=== PATIENT | female | born 1940 | race Caucasian/White ===

== ENCOUNTER → 2016-10-05 | Day surgery (SDC) | payer OTHER ==
[~2016-10-05] VITALS: Ht 160 cm; Wt 51.7 kg
[~2016-10-05] MED LIST: AMBIEN10 M1 PO; AMBIEN5 M1 PO; COLACE100 M1 PO; DILAUDID2 M1 PO; ELIQUIS2.5 M1 PO; ELMIRON100 M1 PO; EVISTA60 MG PO; HYDROXYZINE HCL25 M2 PO; LOMOTIL 2.5-0.1 EACH PO; MIRALAX17 G1 PO; OMEPRAZOLE40 M1 PO; PROAIR HFA8.5 GM INH
--- NOTE | 2016-10-05 10:50 | Operative Report ---
Operative/Inv Procedure Report Surgery Date: 10/05/16 Name of Procedure: Right knee arthroscopic lateral release Right knee arthroscopic partial lateral meniscectomy Pre-Operative Diagnosis: Right knee patellar chondromalacia Post-Operative Diagnosis: Right knee patellar chondromalacia Right knee lateral meniscal tear Right knee osteoarthritis lateral compartment Estimated Blood Loss: scant Surgeon/Mercerizing Range Controller: RAVEN BARBOZA MD Anesthesia: laryngeal mask airway IV Fluids: See anesthesia record Drains: None Specimens: None Complications: None Condition: Stable Operative Indication: Patient is a 76-year-old female with complaints of chronic anterior knee pain and patellofemoral symptoms. She is failed conservative treatment with physical therapy and injections and wished to undergo arthroscopic procedure for a lateral release. Risk and benefits of the procedure were discussed in detail with the patient and she wished to proceed with the procedure. Operative/Procedure Note Note: Once informed consent was obtained and the correct limb was identified the patient brought to operative room placed on table in supine position. After administration of anesthesia the patient's right leg was placed in the knee aguirre and the foot of table was dropped and the right leg was prepped and draped in usual sterile fashion. To begin the procedure a lateral scopic portals made and the scope was introduced into the joint. Diagnostic arthroscopy was carried out. Patella femoral joint was inspected. There was significant wear of the lateral facet of patella and there was a full-thickness defect of the femoral trochlea. There were no plica or bands. There are no loose bodies in the mediolateral gutters. The medial compartment knee was entered by placing a valgus stress of the knee. The medial meniscus was intact. There are minimal to no degenerative changes of the medial femoral condyle medial tibial plateau. The scope was taken across intercondylar notch. ACL was intact. By placing leg in a figure 4 position the lateral compartment knee was entered. The lateral compartment of the knee showed full-thickness defects of the lateral tibial plateau and lateral femoral condyle. There was complete cartilage loss. There was also a tear of the body of the lateral horn of the lateral meniscus. Arthroscope was brought back in the medial compartment knee and a medial portal was made under direct visualization. A 4.2 great white shaving device was placed into the knee and the camera and shaving device were brought into lateral compartment of the knee. Partial lateral meniscectomy was performed and the meniscus was trimmed back to stable rim of cartilage. A chondroplasty was done on the cartilaginous defect regions. Once we were completed that we brought the shaving device back into the total femoral joint and mild debridement with of the synovium was done. Next an electrocautery device was done and a lateral release of the patellar retinaculum was performed without complication. Shaving device was then used to smooth off any rough edges of cartilage on the trochlea and patella. The knee was irrigated with ARTHROscopic saline and instruments removed. Portals were closed with 3-0 nylon interrupted sutures and a sterile dressing was applied and the patient was awakened taken recovery room in stable condition.
== END ==
LOC: STS 03:32
DX: M23.200 Derangement of unspecified lateral meniscus due to old tear or injury, right knee (principal); M22.41 Chondromalacia patellae, right knee; E53.8 Deficiency of other specified B group vitamins; D64.9 Anemia, unspecified; K21.0 Gastro-esophageal reflux disease with esophagitis
CPT/HCPCS: J0131; J1200; J2250; J2405

== ENCOUNTER 2016-11-28 03:21 | Inpatient (IN) | payer OTHER ==
[~2016-11-28] VITALS: Ht 157.5 cm; Wt 50.8 kg
[~2016-11-28 03:21] MED LIST changes: -COLACE100 M1 PO; -DILAUDID2 M1 PO; -ELIQUIS2.5 M1 PO; -MIRALAX17 G1 PO
[2016-11-28] MEDS ORDERED: MIRALAX17 G1 PO (09:56)
[2016-11-28] MEDS ORDERED: COLACE100 M1 PO (09:56)
[2016-11-28] MEDS ORDERED: ELIQUIS2.5 M1 PO (09:56)
[2016-11-28] MEDS ORDERED: DILAUDID2 M1 PO (09:56)
--- NOTE | 2016-11-28 09:59 | Patient Discharge Instructions ---
Discharge Instructions General Discharge Information You were seen/treated for: Right knee pain You had these procedures: Right total knee replacement Watch for these problems: Increasing pain, redness, warmth, swelling. Drainage of any type from incision. Inability to bear weight on right leg. Fever greater than 101.5. Do not soak the wound: Yes No bath, but you may shower: Yes Special Instructions: Incision: Dry dressing. May shower. No baths. No ointments of any kind. Ice as needed. Bowel regimen: Colace and or MiraLAX Weight-bearing as tolerated Follow-up with Dr. Escalante in 6 weeks. Call office for fevers greater than 101.5, excessive drainage or inability to bear weight on operative extremity. Visiting nurse will change dressing. Diet Continue normal diet: Yes Recommended Diet: Regular Additional DIET Information: Advance as tolerated Activity Full Activity/No Limits: No Activity Self Limited: Yes Pounds, do NOT lift more than: 10 Additional ACTIVITY Info: Weight-bear as tolerated on right leg Acute Coronary Syndrome Inclusion Criteria At DC or during hospital stay patient has or had the following: ACS DIAGNOSIS No Discharge Core Measures Meds if any: Prescribed or Continued at Discharge Meds if any: NOT Prescribed or Continued at Discharge Congestive Heart Failure Inclusion Criteria At DC or during hospital stay patient has or had the following: CHF DIAGNOSIS No Discharge Core Measures Meds if any: Prescribed or Continued at Discharge Meds if any: NOT Prescribed or Continued at Discharge Cerebrovascular accident Inclusion Criteria At DC or during hospital stay patient has or had the following: CVA/TIA Diagnosis No Discharge Core Measures Meds if any: Prescribed or Continued at Discharge Meds if any: NOT Prescribed or Continued at Discharge Venous thromboembolism Inclusion Criteria VTE Diagnosis No VTE Type NONE VTE Confirmed by (Test) NONE Discharge Core Measures - Per Current guidelines, there needs to be overlap - treatment for the first 5 days of Warfarin therapy. - If discharged on Warfarin prior to 5 days of - overlap therapy, the patient will need to be - assessed for post discharge needs including - *Post discharge parental anticoagulation - *Warfarin and/or parental anticoagulation education - *Follow up date to check INR post discharge At least 5 days overlap therapy as Inpatient No Meds if any: Prescribed or Continued at Discharge Note: Overlap Therapy is Warfarin and Anticoagulant Meds if any: NOT Prescribed or Continued at Discharge
--- NOTE | 2016-11-28 10:01 | Admission Core Measures ---
Admission Meds I reviewed the following Meds: Current Medications Sig/Clarita Start time Last Medication Dose Stop Time Status Admin Acetaminophen 975 MG ONCE 11/28 0000 NR (Tylenol) 11/28 2358 Albuterol Sulfate See Dose Q6P PRN 11/28 0930 AC (Ventolin) Insts (1) Omeprazole 40 MG DAILY AC 11/29 0700 AC (Prilosec) Oxycodone HCl 10 MG ONCE 11/28 0000 NR (Roxicodone) 11/28 2358 Pentosan Polysulfate 100 MG TID 11/28 1000 AC Sodium (ELMIRON) Raloxifene HCl 60 MG DAILY 11/28 1000 AC (Evista 60MG) Vancomycin HCl 1,000 MG ONCE 11/28 0000 NR Dextrose/Water 250 ML 11/28 2358 (D5W) Zolpidem Tartrate 10 MG AT BEDTIME 11/28 2200 AC (Ambien) Dose Instructions: (1)Albuterol Sulfate (Ventolin): 1-2 PUF Acute Coronary Syndrome Inclusion Criteria ACS Diagnosis No Inpatient Core Measures LDL Reminder: If No, please order W/I first 24hr of stay Congestive Heart Failure Inclusion Criteria CHF Diagnosis No Cerebrovascular accident Inclusion Criteria CVA/TIA Diagnosis No Inpatient Core Measures Bedside Swallow Eval Reminder: If BSE failed, place ST order Antithrombotic Reminder: Order Antithrombotic Medication by end of day 2 Antithrombotic Reminder: Document Reason Antithrombotic Not ordered by end of day 2 AFIB/Flutter Reminder: If Present, add to problem list AFIB/Flutter Reminder: Order Anticoag Medication for pts with AFIB/Flutter Atherosclerosis Reminder: If Present, add to problem list LDL Reminder: If No, please order W/I first 24hr of stay PT Order Reminder: If No, please order Venous thromboembolism Inpatient Core Measures VTE Risk Factors: Age > 40, Surgery VTE Prophylaxis [facility] prophylaxis d/t No contraindications No VTE Pharm Prophylaxis d/t No contraindications Inclusion Criteria - Per Current guidelines, there needs to be overlap - treatment for the first 5 days of Warfarin therapy. - Parenteral Anticoagulation (IV or SC) needs to be - given along with Warfarin therapy. VTE Diagnosis No VTE Type NONE VTE Confirmed by (Test) NONE Problem List As ranked by this Provider includes Assessment & Plan 1. Unilateral primary osteoarthritis, right knee HOME MEDS Home Med List Albuterol Sulfate (Proair Hfa) 90 MCG HFA.AER.AD 1-2 PUF INH AD PRN RESPIRATORY (Reported) Apixaban (Eliquis) 2.5 MG TABLET 1 TAB PO BID ANTICOAGULATION Diphenoxylate HCl/Atropine (Lomotil 2.5-0.025 MG Tablet) 2.5 MG-0.025 MG TABLET Unknown PO DAILY DIARRHEA (Reported) Docusate Sodium (Colace) 100 MG CAPSULE 1 CAP PO BID CONSTIPATION Hydromorphone HCl (Dilaudid) 2 MG TABLET 1-2 TAB PO Q4-6P PRN PAIN Hydroxyzine HCl (Unknown Strength) TABLET 2 TAB PO QPM UNKNOWN (Reported) Omeprazole 40 MG CAPSULE.DR 1 CAP PO DAILY GERD (Reported) Pentosan Polysulfate Sodium (Elmiron) 100 MG CAPSULE 1 CAP PO TID CYSTITIS ( Reported) Polyethylene Glycol 3350 (Miralax) 17 GRAM POWD.PACK 1 PAC PO DAILY CONSTIPATION Raloxifene Hydrochloride (Evista) 60 MG TABLET 1 TAB PO DAILY UNKNOWN ( Reported) Zolpidem Tartrate (Ambien) 10 MG TABLET 1 TAB PO NIGHTLY SLEEP (Reported)
--- NOTE | 2016-11-28 10:04 | Surgical Discharge Summary ---
Visit Information Visit Dates Admission Date: 11/28/16 Discharge Date: 12/01/2016 History of Present Illness Chief Complaint: Right knee pain Surgical History Pertinent Surgical History: non-contributory Review of Systems: See H&P Hospital Course Course Attending Physician: DISHA BERUMEN MD Primary Care Physician: DAWN JIMENEZ,[facility] Course: Patient was admitted to the hospital on 11/28/2016 for an elective right total knee replacement. She tolerated the procedure well. She was transferred to a general surgical floor. Her diet was advanced and tolerated. Her vital signs were stable and within normal limits. She voided spontaneously. Her pain was well controlled. She was evaluated and treated by physical therapy. She was deemed appropriate for discharge to home with home health services. Allergies: Coded Allergies: Gadolinium-Containing Contrast Medi (UNKNOWN REACTION TO IV DYES 09/29/16) Iodinated Contrast Media - Oral and (UNKNOWN REACTION TO IV DYES 09/29/16) NSAIDS (Non-Steroidal Anti-Inflamma (UNKNOWN 11/25/16) PER PRE-OP ORDER SHEET. -CG 11/25/16 1037 Penicillins (UNKNOWN 09/29/16) Sulfa (Sulfonamide Antibiotics) (UNKNOWN 09/29/16) aspirin (GI UPSET 10/05/16) cat dander (ANGIODEMA, HIVES 09/29/16) codeine (UNKNOWN 09/29/16) egg (UNKNOWN 09/29/16) ibuprofen (GI UPSET 10/05/16) milk (UNKNOWN 09/29/16) phenobarbital (UNKNOWN 09/29/16) Disposition Summary Disposition Principal Diagnosis: Right knee unilateral primary osteoarthritis Additional Diagnosis: None Discharge Disposition: home health services Discharge Instructions General Discharge Information Code Status: Full Code Patient's Diet: Regular, advance as tolerated Patient's Activity: Weight-bear as tolerated on right leg Follow-Up Instructions/Appts: Incision: Dry dressing. May shower. No baths. No ointments of any kind. Ice as needed. Bowel regimen: Colace and or MiraLAX Weight-bearing as tolerated Follow-up with Dr. Berumen in 6 weeks. Call office for fevers greater than 101.5, excessive drainage or inability to bear weight on operative extremity. Visiting nurse will change dressing. Medications at Discharge Discharge Medications: Continue taking these medications: Pentosan Polysulfate Sodium (Elmiron) 100 MG CAPSULE 1 Capsule ORAL THREE TIMES DAILY Comments: DOCUMENTED PER CMR DURING PRE-SX INTERVIEW Diphenoxylate HCl/Atropine (Lomotil 2.5-0.025 MG Tablet) 2.5 MG-0.025 MG TABLET Unknown ORAL DAILY Comments: "4 MG DAILY" DOCUMENTED PER CMR DURING PRE-SX INTERVIEW Hydroxyzine HCl (Hydroxyzine HCl) (Unknown Strength) TABLET 2 Tablet ORAL Every night Comments: DOCUMENTED PER CMR DURING PRE-SX INTERVIEW Omeprazole (Omeprazole) 40 MG CAPSULE.DR 1 Capsule ORAL DAILY Comments: DOCUMENTED PER CMR DURING PRE-SX INTERVIEW Albuterol Sulfate (Proair Hfa) 90 MCG HFA.AER.AD 1-2 Puff Inhale through mouth As Directed as needed for RESPIRATORY Comments: DOCUMENTED PER CMR DURING PRE-SX INTERVIEW Zolpidem Tartrate (Ambien) 10 MG TABLET 1 Tablet ORAL NIGHTLY Raloxifene Hydrochloride (Evista) 60 MG TABLET 1 Tablet ORAL DAILY Start taking the following new medications: Hydromorphone HCl (Dilaudid) 2 MG TABLET 1-2 Tablet ORAL Q4-6P as needed for PAIN Qty = 36 No Refills Apixaban (Eliquis) 2.5 MG TABLET 1 Tablet ORAL TWICE DAILY Qty = 60 No Refills Polyethylene Glycol 3350 (Miralax) 17 GRAM POWD.PACK 1 Packet ORAL DAILY Qty = 7 No Refills Instructions: dissolve in water, DISCONTINUE USE IF YOU DEVELOP LOOSE STOOL OR DIARRHEA Docusate Sodium (Colace) 100 MG CAPSULE 1 Capsule ORAL TWICE DAILY Qty = 14 No Refills Instructions: DISCONTINUE USE IF YOU DEVELOP LOOSE STOOL OR DIARRHEA
[2016-11-28 14:00] VITALS: BP 114/74
--- NOTE | 2016-11-28 16:45 | Operative Report ---
Operative/Inv Procedure Report Surgery Date: 11/28/16 Name of Procedure: Right total knee replacement Pre-Operative Diagnosis: Primary right knee DJD Post-Operative Diagnosis: Same Estimated Blood Loss: 50ml to 100ml Surgeon/Shift Superintendent Caustic Cresylate: DISHA BERUMEN MD Anesthesia: block Operative/Procedure Note Note: Description of Procedure: The patient was taken to the operating room and positively identified. After induction of spinal anesthesia and administration of appropriate pre-operative antibiotics, the patient was positioned supine on the operating room table and all bony prominences were well padded. A well-padded pneumatic tourniquet was placed on the right upper thigh. After performing a surgical timeout, the right lower extremity was prepped and draped in the usual sterile fashion. After exsanguination with Esmarch the tourniquet was inflated to 250mm of mercury. A standard medial parapatellar approach was made to the knee. This was carried down through skin and subcutaneous tissue to the level of the fascia. Meticulous hemostasis was maintained with Bovie electrocautery. The extensor mechanism and patellar retinaculum were opened sharply and the patella was everted. The infrapatellar fat was resected in order to improve exposure. Osteophytes were trimmed from the patella and femoral condyles and the patella was re-everted and tucked laterally. A medial release was performed and the cruciate ligaments were resected. The tibia was then subluxed anteriorly. Utilizing the appropriate extra-medullary guide, the proximal tibia was trimmed perpendicular to the long axis of the tibial shaft. Attention was then turned to the femur. After opening the medullary canal, the distal femoral cut was made in 6 degrees of valgus utilizing the appropriate intra-medullary guide. The extension gap was checked and found to be appropriate. The femur was then sized and the remainder of the femoral cuts were made with a size 3 4-in-1 femoral cutting guide. The flexion gap was checked and found to be symmetric and appropriate. The knee was then trialed with a size 3 femoral component, a size 3 tibial component and a size 7 mm polyethylene insert. The patella was trimmed to accept an A 32 patella. This yielded excellent range of motion, stability and patellar tracking. All trial components were removed and the knee was copiously irrigated with sterile saline. All components were cemented into place with Quantifeed Simplex cement. All the components were of the Quantifeed Triathlon knee system of the above stated sizes. The knee was again irrigated after cementation. The extensor mechanism and patellar retinaculum were repaired using interrupted #1 vicryl suture. The skin was re-approximated with 2-0 vicryl and closed with lillie. A sterile dressing was applied, the tourniquet was deflated, the patient was awakened and taken to the recovery room in satisfactory condition.
--- NOTE | 2016-11-28 17:01 | PN- Orthopedic ---
Subjective Subjective: Patient reporting no acute post operative events. She tolerated procedure well. She denies chest pain, shortness of breath and difficulty breathing. She denies nausea and vomitting. She has eaten, she has ambulated. She feels that her pain is well controlled presently. Objective Vital Signs and I&Os BP: 114/74 HR: 70 RR:18 O2:96% ra T:98.9 oral Physical Exam: General: Alert and oriented x3, no acute distress Cardiac: RRR, s1s2 Pulm: CTA bilaterally Abdomen: Non-tender, non-distended Extremities: Moves all extremities, distal sensation intact, motor 5/5 in plantar and dorsi flexion, skin warm and well perfused. DP pulses palpable bilaterally. Bilateral calves soft and non-tender Surgical site: Right knee, dressing dry and intact. Assessment/Plan Assessment/Plan This is a 76 year old female, POD 0, s/p right tkr, doing well -d/c iv fluids, tolerating po and urine output adequate -ancef 2 grams iv q8 x 2 additional doses for abx ppx -pain mgmt: dilaudid 2-4mg po with 2mg morphine iv as breakthrough -DVT ppx: ALPS, early ambulation today, Eliquis 2.5mg bid starting tomorrow am -Diet: Regular, advance as tolerated -Bowel regimen: Colace scheduled bid, miralax scheduled daily -Follow up am labs, serum iron and iron binding capacity as well as cbc and bep in am -Activity: OOB with PT, wbat -Dressing change and OnQ d/c on POD 2 -Plan for dc to home on POD 3 -Will d/w Dr. Escalante Core Measures/Miscellaneous Venous Thromboembolism VTE Risk Factors: Age > 40, Surgery VTE Contraindications: No Contraindications VTE Prophylaxis Ordered Inpt: Mech & Pharm VTE Diagnosis: No VTE Type: NONE VTE Confirmed by (Test): NONE Beta Latosha Is Beta Latosha a Home Med? No Antibiotics Is Patient on Antibiotics? Yes If Yes: prophylaxis
[2016-11-28 17:07] VITALS: BP 120/68
[2016-11-28 19:33] VITALS: BP 107/62
[2016-11-28 21:55] VITALS: BP 110/58
[2016-11-29 01:00] VITALS: BP 112/58
[2016-11-29 05:00] VITALS: BP 104/60
--- NOTE | 2016-11-29 07:30 | PN- Orthopedic ---
Subjective Subjective: The patient was seen this morning postoperatively day #1. She reports that her pain is under adequate control however she is having some muscle spasms in the operative leg. She has no complaints at the current time and is eager to get up with physical therapy. Objective Vital Signs and I&Os Vital Signs Date Time Temp Pulse Resp B/P Pulse O2 O2 Flow FiO2 Ox Delivery Rate 11/29 0500 98.1 88 16 104/60 94 Room Air 11/29 0100 97.8 83 18 112/58 94 Room Air 11/28 2155 98.3 83 20 110/58 93 Room Air 11/28 1933 98.2 79 20 107/62 93 11/28 1707 97.4 93 20 120/68 94 11/28 1600 94 Room Air 11/28 1400 98.9 68 18 114/74 96 Intake & Output 11/29 0800 11/29 0000 11/28 1600 11/28 0800 11/28 0000 11/27 1600 Intake Total 440 779 Output Total 700 1350 Balance -260 -571 Intake, IV 80 179 Intake, Oral 360 600 Output, Urine 700 1350 Patient 112 lb Weight Physical Exam: Gen.: Alert and in no obvious distress Skin: Warm and dry Extremities: Bilateral lower extremities are warm without calf tenderness or significant edema. Gross motor and sensory are intact. Right leg surgical dressing is clean, dry, and intact. Assessment/Plan Assessment/Plan Assessment: 76-year-old female status post right total knee arthroplasty postoperative day 1. The patient is progressing as expected and her pain is under adequate control. Plan: Hep-Lock IV fluids DC Mitchell catheter Out of bed with physical therapy add when necessary Valium 2 current pain regiment begin eliquis twice a day first dose this morning GI and DVT prophylaxis Follow-up morning laboratory studies First surgical dressing change tomorrow Core Measures/Miscellaneous Venous Thromboembolism VTE Risk Factors: Age > 40, Surgery VTE Contraindications: No Contraindications VTE Prophylaxis Ordered Inpt: Mech & Pharm VTE Diagnosis: No VTE Type: NONE VTE Confirmed by (Test): NONE Beta Latosha Is Beta Latosha a Home Med? No Antibiotics Is Patient on Antibiotics? No
[2016-11-29 07:56] LABS: ABSOLUTE BASOPHIL COUNT 0 /CUMM (0.0-0.2); ABSOLUTE EOSINOPHIL COUNT 0 /CUMM (0.0-0.7); ABSOLUTE GRANULOCYTE CT 7.8 /CUMM (1.4-6.5); ABSOLUTE LYMPH COUNT 0.5 /CUMM (1.2-3.4); ABSOLUTE MONOCYTE COUNT 0.7 /CUMM (0.10-0.60); BASOPHIL % 0 % (0.0-2.0); EOSINOPHIL % 0.1 % (0-5); GRANULOCYTE % 86.6 % (42.2-75.2); HEMATOCRIT 29.7 % (37-47); MEAN CORPUSCULAR HGB CONC 33.1 G/DL (33.0-37.0); MEAN CORPUSCULAR VOLUME 93.6 FL (81.0-99.0); MEAN PLATELET VOLUME 9.9 FL (7.4-10.4); PLATELET COUNT 134 /CUMM (130-400); RBC DISTRIBUTION WIDTH 12.8 % (11.5-14.5); RED BLOOD CELL CT 3.17 /CUMM (4.20-5.40)
[2016-11-29 08:45] VITALS: BP 104/56
[2016-11-29 16:52] VITALS: BP 122/68
[2016-11-30 00:01] VITALS: BP 132/58
--- NOTE | 2016-11-30 07:14 | PN- Orthopedic ---
Subjective Subjective: See progress note by Ervin RAMESH on 11/30 Objective Vital Signs and I&Os See progress note by Ervin RAMESH on 11/30 Assessment/Plan Assessment/Plan See progress note by DOMITILA Farmer on 11/30 Core Measures/Miscellaneous Venous Thromboembolism VTE Risk Factors: Age > 40, Surgery VTE Contraindications: No Contraindications VTE [facility]phylaxis [facility] VTE Diagnosis: No VTE Type: NONE VTE Confirmed by (Test): NONE Beta Latosha Is Beta Latosha a Home Med? No Antibiotics Is Patient on Antibiotics? No
--- NOTE | 2016-11-30 07:37 | PN- Orthopedic ---
Subjective Subjective: POD#2 S/P TKA NO MAJOR CPMLINATS DENEIS CP, SOB, NO N+V WITH DIET Objective Vital Signs and I&Os Vital Signs Date Time Temp Pulse Resp B/P Pulse O2 O2 Flow FiO2 Ox Delivery Rate 11/30 0001 98.6 80 18 132/58 93 Room Air 11/29 1652 98.8 79 20 122/68 96 Room Air 11/29 0845 97.4 80 18 104/56 94 Room Air Intake & Output 11/30 0811/30 0000 11/29 1600 11/29 0800 11/29 0000 11/28 1600 Intake Total 360 900 910 440 779 Output Total 400 366 663 0800 Balance 360 500 485 260 571 Intake, IV 10 80 179 Intake, Oral 360 900 900 360 600 Number 1 Bowel Movements Output, Urine 400 823 255 2327 Patient 112 lb Weight Physical Exam: CV: RRR LUNGS; CLEAR ABD: SOFT, +BS EXT: DRSG CHANGED, WOUND C/D/I DITRAL CMS INTACT NO CALF TNEDERNESS BILAT Assessment/Plan Assessment/Plan ORTHO STABLE PLAN CONT OOB WITH PT/STAIRS ELIQUIS FRO DVT PROPHYLAXIS HOME D/C PLANNING Core Measures/Miscellaneous Venous Thromboembolism VTE Risk Factors: Age > 40, Surgery VTE Contraindications: No Contraindications VTE Prophylaxis Ordered Inpt: Mech & Pharm VTE Diagnosis: No VTE Type: NONE VTE Confirmed by (Test): NONE Beta Latosha Is Beta Latosha a Home Med? No Antibiotics Is Patient on Antibiotics? No
[2016-11-30 08:35] VITALS: BP 112/62
[2016-11-30 14:20] VITALS: BP 126/60
[2016-11-30 21:49] VITALS: BP 96/60
--- NOTE | 2016-12-01 07:25 | PN- Orthopedic ---
Subjective Subjective: The patient was seen this morning postoperatively day #3. She reports progressive improvement in in her pain and in her ability to ambulate. She has no other complaints at the current time and is eager to go home today. Objective Vital Signs and I&Os Vital Signs Date Time Temp Pulse Resp B/P Pulse O2 O2 Flow FiO2 Ox Delivery Rate 11/30 2148 98.3 84 19 96/60 98 11/30 1420 97.9 73 20 126/60 98 Room Air 11/30 0835 98.9 79 18 112/62 97 Room Air Intake & Output 12/01 0800 / 0000 11/30 1600 11/30 0800 11/30 0000 11/29 1600 Intake Total 450 950 360 900 910 Output Total 550 400 425 Balance 450 400 360 500 485 Intake, IV 50 10 Intake, Oral 450 900 360 900 900 Number 0 1 Bowel Movements Output, Urine 550 400 425 Physical Exam: Gen.: Alert and in no obvious distress Skin: Warm and dry Extremities: Bilateral lower extremities are warm without calf tenderness or significant edema. Gross motor and sensory are intact. Right knee surgical incision is clean, dry, and intact without signs of infection. Surgical clips are in place. Assessment/Plan Assessment/Plan Assessment: 76-year-old female status post right total knee arthroplasty postoperative day #3. The patient is progressing as expected and her pain is under adequate control. Plan: Out of bed ambulating with physical therapy Daily dry dressing change Continue current pain regiment GI and DVT prophylaxis Discharge home today Core Measures/Miscellaneous Venous Thromboembolism VTE Risk Factors: Age > 40, Surgery VTE Contraindications: No Contraindications VTE Prophylaxis Ordered Inpt: Mech [facility] Pharm VTE Diagnosis: No VTE Type: NONE VTE Confirmed by (Test): NONE Beta Latosha Is Beta Latosha a Home Med? No Antibiotics Is Patient on Antibiotics? No
[2016-12-01 07:44] VITALS: BP 104/66
== END 2016-12-01 12:29 | disposition home health service (06) | DRG 470 ==
LOC: ENRESERVDT → ENRESERVTM → 2NB 03:21 → SDA 03:21 → ENPENDDIS 03:21 → 2NB 13:15
PROVIDERS: Nurse Practitioner; ADMIT Orthopaedic Surgery
PROC: 0SRC0J9 Replacement of Right Knee Joint with Synthetic Substitute, Cemented, Open Approach (ICD-10-PCS; principal; 2016-11-28)
DX: M17.11 Unilateral primary osteoarthritis, right knee (principal); D53.9 Nutritional anemia, unspecified; N30.10 Interstitial cystitis (chronic) without hematuria; D50.9 Iron deficiency anemia, unspecified; K21.9 Gastro-esophageal reflux disease without esophagitis; E53.9 Vitamin B deficiency, unspecified; J45.909 Unspecified asthma, uncomplicated
CPT/HCPCS: 2NBP; 36415; 82436; 87086; 88305; 97110-GO; 97116-GO; 97161-GP; 97530-GO; C1713; J0131; J0690; J1100; J1630; J2405; J2550; J2795; J3101; J3370; J3490; J7042; J7060